=== PATIENT | female | born 2000 | race Caucasian/White ===

== ENCOUNTER 2022-05-28 12:53 | Outpatient (CLI) | payer OTHER, SELFPAY ==
[2022-05-28 20:45] LABS: Albumin* 4.7 g/dL (3.3-5.0); Chloride* 103 mmol/L (96-114); Potassium* 4.2 mmol/L (3.6-5.1); Sodium* 138 mmol/L (135-149)
[2022-05-28 20:49] LABS: Alanine Aminotransferase* 19 U/L (4-35); Alkaline Phosphatase* 67 U/L (40-150); Aspartate Amino Transferase* 28 U/L (12-35); Bilirubin Direct* 0.3 mg/dL (0.0-0.5); Bilirubin Total* 0.7 mg/dL (0.1-1.5); Blood Urea Nitrogen* 5 mg/dL (5-24); Calcium* 9.4 mg/dL (8.4-10.6); Carbon Dioxide* 30 mmol/L (20-32); Creatinine* 0.8 mg/dL (0.5-1.5); Estimated Glomerular Filt Rate 106.77; Glucose* 84 mg/dL (60-115); Lipase* 70 U/L (23-300)
== END 2022-05-28 12:54 | disposition home or self-care (01) ==
PROVIDERS: Visit Provider Family Medicine
DX: R53.83 Other fatigue (principal); R19.7 Diarrhea, unspecified; R10.9 Unspecified abdominal pain; M54.9 Dorsalgia, unspecified; R68.81 Early satiety
CPT/HCPCS: 80048; 80076; 83690

== ENCOUNTER 2022-05-28 21:46 | Emergency (ER) | payer OTHER, SELFPAY ==
[2022-05-28 21:52] VITALS: BP 107/78; PULSE 45; RESP 16; TEMP 36.2; O2SAT 100; BMI 22.9
--- NOTE | 2022-05-28 22:10 | CRLHL7_ITS ---
For Patients: As a result of the Century Cures Act, medical imaging exams and procedure reports are released immediately into your electronic medical record. You may view this report before your referring provider. If you have questions, please contact your health care provider. INDICATION: Back pain starts right and radiates, Chest Pain TECHNIQUE: CT chest with i.v. contrast using pulmonary angiographic technique. Coronal and sagittal reformats were obtained. CONTRAST: 95 mL Isovue 370 COMPARISON: None FINDINGS: Cardiovascular: The pulmonary arteries are unremarkable in enhancement with no evidence of acute pulmonary embolism. The heart has an unremarkable appearance and size. No sign of aneurysm in the thoracic aorta. Mediastinum: No mass or adenopathy seen. Lung: Both lungs are unremarkable in appearance. Pleura and pericardium: No sign of pleural effusion seen. No significant pericardial effusion is present. Chest wall and axilla: No mass or adenopathy seen. Bone: Mild chronic appearing compression deformities are seen on the superior endplates of T12-L2. Upper abdomen: Unremarkable. IMPRESSION: 1. No CT evidence of acute pulmonary emboli seen. Dictated by Saw Haywood MD @ 05/29/2022 12:36:43 AM Please note that all CT scans at this facility use dose modulation, iterative reconstruction, and/or weight-based dosing when appropriate to reduce radiation dose to as low as reasonably achievable. Dictated by: Saw Haywood MD @ 05/29/2022 00:37:10 (Electronically Signed)
--- NOTE | 2022-05-28 22:10 | CRLHL7_ITS ---
For Patients: As a result of the Century Cures Act, medical imaging exams and procedure reports are released immediately into your electronic medical record. You may view this report before your referring provider. If you have questions, please contact your health care provider. INDICATION: Right upper quadrant abdomen pain. TECHNIQUE: Ultrasound abdomen limited. Sonographic images of the right upper quadrant were obtained using russell-scale and color Doppler images. COMPARISON: None. FINDINGS: Liver: Normal in size and echotexture. No suspicious masses. No intrahepatic biliary dilation. Gallbladder: Contracted due to recent meal. No obvious gallstones. Normal wall thickness. No pericholecystic fluid. Common bile duct: 4 mm. Pancreas: Unremarkable. Right kidney: Normal in size. Normal echotexture and cortex. No suspicious masses, stones, or hydronephrosis. Vasculature: Proximal abdominal aorta and IVC are unremarkable. IMPRESSION: Contracted gallbladder, otherwise normal ultrasound. Dictated by Eldon Torres MD @ 05/28/2022 11:48:34 PM (Electronically Signed)
[2022-05-28 22:33] VITALS: BP 91/62; PULSE 40; RESP 16; O2SAT 98
[2022-05-28 23:00] VITALS: BP 92/63; PULSE 42; RESP 16; O2SAT 99
[2022-05-28 23:30] VITALS: BP 91/63; PULSE 40; RESP 16; O2SAT 100
--- NOTE | 2022-05-29 00:50 | ED.GENADULT ---
HPI - General Adult General Chief complaint: Back Injury/Pain Stated complaint: Back pain w/ pale stool Time Seen by Provider: 05/28/22 22:11 History of Present Illness HPI narrative: Patient is a 21-year-old woman who comes in today with posterior thoracic pain which is been escalating for last several weeks. Patient was seen in urgent care clinic today and had normal CBC CMP and UA. 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 Patient has had no cough no shortness of breath no fevers no chills. Pain is mom moderate to severe at times. Pain seems worsen with eating. Related Data Home Medications Medication Instructions Recorded Confirmed adapalene 0.3 % topical gel g TOPICAL 05/28/22 05/28/22 cefuroxime axetil 250 mg tablet 250 mg PO tab 05/28/22 05/28/22 medroxyprogesterone 10 mg tablet 10 mg PO tab 05/28/22 05/28/22 Allergies Allergy/AdvReac Type Severity Reaction Status Date / Time No Known Drug Allergies Allergy Verified 05/28/22 12:22 Review of Systems Status of ROS: Reports: 10 or more systems reviewed and unremarkable except as noted in History and below [facility] Social History Smoking Status: Never smoker Do you use any of these nicotine containing products: None How often do you have a drink containing alcohol: never AUDIT-C Alcohol total score: 0 Non-prescribed substance use: denies use service: No Exam Narrative: Exam Narrative: EXAM GENERAL: Patient appears comfortable and well. THYROID: no thyroid nodules or thyromegaly. LYMPH: No supraclavicular or cervical lymphadenopathy. SKIN: Visible skin seen during exam normal or with benign process only. EXT: No dependent lower extremity pedal edema. HEART: Regular rate and rhythm with no murmurs, rubs, or gallops. LUNGS: Clear to auscultation bilaterally with no crackles or wheezes. ABD: Soft, non tender, non distended. PSYCH: Good eye contact, speech is not pressured. Const: Vital Signs, click to edit/add: Vital Signs - 24 hr 05/28/22 21:52 05/28/22 22:33 Temperature 97.1 F L Pulse Rate [Left P ulse Oximeter] 45 L 40 L Respiratory Rate 16 16 Blood Pressure [Le ft Upper Arm] 107/78 91/62 Pulse Oximetry 100 98 Course Vital Signs Vital signs: Initial Vital Signs Temperature 97.1 F L 05/28/22 21:52 Temperature Source Temporal Artery Scan 05/28/22 21:52 Pulse Rate 45 L 05/28/22 21:52 Respiratory Rate 16 05/28/22 21:52 Blood Pressure 107/78 05/28/22 21:52 Blood Pressure Mean 87 05/28/22 21:52 Blood Pressure Position Sitting 05/28/22 21:52 Pulse Oximetry 100 05/28/22 21:52 Oxygen Delivery Method 05/28/22 21:52 Vital Signs Temperature 97.1 F L 05/28/22 21:52 Pulse Rate 45 L 05/28/22 21:52 Respiratory Rate 16 05/28/22 21:52 Blood Pressure 107/78 05/28/22 21:52 Pulse Oximetry 100 05/28/22 21:52 Temperature 97.1 F L 05/28/22 21:52 Pulse Rate 40 L 05/28/22 22:33 Respiratory Rate 16 05/28/22 22:33 Blood Pressure 91/62 05/28/22 22:33 Pulse Oximetry 98 05/28/22 22:33 Discharge Plan Discharge Clinical Impression: Back pain, thoracic Patient Disposition: Home, Self-Care Condition: Stable Instructions: Back Pain (ED) Additional Instructions: Monitor color and character of stool for the next 3 days Ice Tyelnol Motrin Follow up next week to discuss HIDA Scan vs Physical Therapy with MRI of the Thoracic Spine Activity Level: Activity as Tolerated Discharge Diet: Regular Prescriptions: No Action medroxyprogesterone 10 mg tablet 10 mg PO 0RF adapalene 0.3 % gel topical 0RF Label Comments: APPLY TOPICALLY AT BEDTIME TO ACNE OF FACE cefuroxime axetil 250 mg tablet 250 mg PO 0RF Follow Up/Referrals: Amrita Cameron PA-C [Primary Care Provider] - Stand Alone Forms: MyHealth Info Instructions
== END 2022-05-29 01:16 | disposition home or self-care (01) ==
PROVIDERS: Emergency Provider Internal Medicine; PCP Physician Assistant
DX: M54.6 Pain in thoracic spine (principal)
CPT/HCPCS: 71260; 76705; 99284; Q9967

== ENCOUNTER 2023-01-10 08:57 | Outpatient (CLI) | payer OTHER, SELFPAY ==
[2023-01-10 15:34] LABS: TSH With Reflex to FT4* 0.493 uIU/mL (0.270-4.200)
== END 2023-01-10 08:58 | disposition home or self-care (01) ==
LOC: LKVREF 08:58
PROVIDERS: PCP Physician Assistant; Visit Provider Physician Assistant
DX: N91.5 Oligomenorrhea, unspecified (principal)
CPT/HCPCS: 84443

== ENCOUNTER 2025-11-26 19:39 | Emergency (ER) | payer OTHER, SELFPAY ==
[2025-11-26 19:41] VITALS: BP 107/71; PULSE 81; RESP 16; TEMP 36.7; O2SAT 95; BMI 24.9
--- OUTSIDE RECORDS SUMMARY | 2025-11-26 19:41 | XMS_ITS | CCD ---
Author Name Interface, [id number] lity Address [address] [place] [address] [facility] Address [address] [place] [address] Reason for Visit Social History Date Name Value 07/27/2025 Sex Unknown
--- OUTSIDE RECORDS SUMMARY | 2025-11-26 19:41 | XMS_ITS | Clinical Summary ---
Author Organization Counts include 234 beds at the [facility] Address [address] [place] [address] Care Team Providers Care Security Researcher Name Role Phone Kathleen Grossman PA-C Primary Care Provider [phone] Source Comments You are receiving this document as you are listed as the primary care provider,follow-up provider, or the patient has been referred to you for consultation.This is in compliance with the Medicare andMag[facility] Hospitalcaid EHR Incentive Program,which states Providers who transition their patient to another setting of careor provider of care or refers their patient to another provider of care shouldprovide summary care record for each transition of care or referral. Counts include 234 beds at the [facility] Allergies Active AllergyReactionsCriticalityNoted DateCommentsGluten MealOther, see /03/2024 Inflammation and gastrointestinal symptoms Lactose Intolerance (Gi)Bvrtpesmavqacbwy42/03/2024 Medications MedicationSigDispense QuantityRefillsLast FilledStart DateEnd DateStatus fluconazole (DIFLUCAN) 150 MG tablet Indications:History of candidal vulvovaginitisOK to take one tab at start of yeast infection. OK to repeat dose if yeast not resolved after 3 days. 2 Tablet 11/01/2024ctive Active Problems ProblemNoted DateDiagnosed DateAttention deficit hyperactivity disorder (ADHD), predominantly inattentive type11/01/2024GAD (generalized anxiety disorder) 11/01/2024Gastroesophageal reflux disease with esophagitis without hemorrhage 08/26/2023Irritable bowel xvilbteb02/29/2023Low grade squamous intraepithelial lesion (LGSIL) at risk for high grade squamous intraepithelial lesion (HGSIL) on cytologic smear of batqiy6701/05/2021 Overview (10/30/2024): 01/05/2021 LSIL, cannot exclude HSIL 01/2021 [place], AIDE 1 01/2022 NIL 07/2023 NIL Plan: pap/hpv due 07/2026 Resolved Problems ProblemNoted DateDiagnosed DateResolved DateIUD (intrauterine device) in place Overview (10/30/2024): 05/01/2018: Mirena IUD inserted. Ioowhqbgfswfp08Other acneiarrhea Overview (10/30/2024): Bloating, diarrhea, dyspepsia. Evaluation [facility], Dr. Astorga, 06/29/13. U/s Blood work. Considering colonoscopy and breath H tests. Immunizations ImmunizationAdministration DatesNext Sey0yNTP (Gardasil)08/10/2013DTaP06/17/2004 ,02/23/2001,05/24/2000,03/22/2000,02/20/2000,01/22/2000Flu Vac (3+ yrs) 08/10/2013,09/18/2008,12/29/2006,10/05/2005Flu Vac Preserv Free (3+yrs) 10/01/2009Fluzone Qiv Multidose Vial 0.25 (6-35 Mos)09/09/2017HPV, Unspecified Xywbgwjnrha76/17/2016HepA Ped/Adol (1-18 yrs)08/10/2013,07/09/2011HepB Ped/Adol (0-18 yrs)02/23/2001,03/22/2000,01/22/2000Hib (PedvaxHIB)02/23/2001,03/22/2000, 01/22/2000Hib/HBV02/23/2001,03/22/2000,01/22/2000IPV (Polio)05/24/2000Influenza (Flucelvax)10/01/2009Influenza IIV4 (Quadrivalent) 0.5mL (82459)09/04/2020, 09/08/2018,11/01/2016,10/13/2015Influenza LAIV3 2-49 years (Flumist)10/20/2010 MCV4 (Menactra)07/14/2016MCV4 Menveo 2m.+ (two vial)07/09/2011MMR06/17/2004, 02/23/2001,11/17/2000Moderna Monovalent 12+01/01/2022,2Pneumococcal 7, PED11/17/2000,08/16/2000Polio, Unspecified Xgbnjibzlid54/21/2004,03/22/2000, 01/22/2000Tdap08/26/2023,07/09/20112292Zjfaqmwtb41/30/2007,11/17/2000 Family History Medical HistoryRelationNameCommentsCancer, ProstateBirth FatherNo Known Problems MotherCrohn's DiseaseMaternal GrandmotherLiver DiseaseMaternal Grandmother Ulcerative ColitisMaternal GrandmotherDiabetesPaternal GrandfatherRelationName StatusCommentsBirth FatherBirth MotherMaternal GrandmotherPaternal Grandfather Social History Tobacco UseTypesPacks/DayYears UsedDateSmoking Tobacco: NeverSmokeless Tobacco: Never Tobacco Cessation:Counseling Given: Not Answered Alcohol UseStandard Drinks/WeekCommentsYes2 (1 standard drink = 0.6 oz pure alcohol)PHQ-2AnswerDate RecordedPHQ-2 Giigw030Hunger Vital SignAnswer Date RecordedWithin the past 12 months, you worried that your food would run out before you got the money to buymore.Never true10/30/2024Within the past 12 months, the food you bought just didn't last and you didn't have money to get more.Never true10/30/2024RAPARE - TransportationAnswerDate RecordedIn the past 12 months, has lack of transportation kept you from medical appointments or from getting medications?No10/30/2024In the past 12 months, has lack of transportation kept you from meetings, work, or from getting things needed for daily living?No10/30/2024Housing Stability Vital SignAnswerDate RecordedIn the last 12 months, was there a time when you were not able to pay the mortgage or rent on time?No10/30/2024In the past 12 months, how many times have you moved where you were living?t any time in the past 12 months, were you homeless or living in a intermediate (including now)?No10/30/2024CommentsNo Sex and Gender InformationValueDate RecordedSex Assigned at BirthNot on file Legal BhcNstiof92/10/2012 6:56 AM CDTGender IdentityNot on fileSexual OrientationNot on file Last Filed Vital Signs Vital SignReadingTime TakenCommentsBlood Pioofphv579/6410/30/2024 8:20 AM MICROBIOLOGY TECHNOLOGIST Ksgcx035610/30/2024 8:20 AM BVXBysbaqqoykx30.6 ??C (97.8 ??F)10/30/2024 8:20 AM CSTRespiratory Zibc402212/31/2023 8:20 AM CSTOxygen Zvspjqpmya27%10/30/2024 8:20 AM CSTInhaled Oxygen Concentration--Oseqvq50.4 kg (164 lb)10/30/2024 8:20 AM MICROBIOLOGY TECHNOLOGIST Bpnzbs577.2 cm (5' 7)10/30/2024 8:20 AM CSTBody Mass Index25.6910/30/2024 8:20 AM MICROBIOLOGY TECHNOLOGIST Plan of Treatment Health MaintenanceDue DateLast DoneCommentsCOVID-19 Vaccine ( season) /02/2022, 12/04/2021Influenza Vaccine (#1)/06/2020, 09/08/2018, 09/09/2017, Additional history existsCervical Cancer Screening Due 07/29/2026dult Preventive Visit612/TaP/Tdap/Td Vaccine (8 - Tdap)/, 07/09/2011, 06/17/2004, Additional history exists Zoster/Shingles Vaccine (1 of 2)2049Pneumococcal VaccineAged Out 11/17/2000, 08/16/2000No longer eligible based on patient's age to complete this topicHepB JcjaawfMcnbcrvms92/29/2001, 02/23/2001, 03/22/2000, Additional history existsHib CdqovvbItsnnyoku94/29/2001, 02/23/2001, 03/22/2000, Additional history existsIPV (Polio) MxeafmtCbveuljes64/21/2004, 05/24/2000, 03/22/2000, Additional history existsVaricella VyeqxlyPkqggqhee05/30/2007, 11/17/2000HepA Vaccine Gfsyljpor34/13/2013, 07/09/2011HPV LtlnvouMjnripmjm49/17/2016, 08/10/2013MCV4 TkcrtjxYdunudjur94/17/2016, 07/09/20110236VmtdhicpaAyuzpxwvudgs58/03/2024, 08/06/2019HIV Screening (Preventive Services)Cnquhvnmj64/03/2024Hep C Screening (Preventive Services)Eupmlkjza79/03/2024Meningococcal B VaccineAged OutNo longer eligible based on patient's age to complete this topic Procedures Procedure NamePriorityDate/TimeAssociated DiagnosisCommentsHIV 1/2 AG/AB 4TH GEN Pbdfynb8910/30/2024 9:17 AM MICROBIOLOGY TECHNOLOGIST Routine screening for STI (sexually transmitted infection) Screening for HIV (human immunodeficiency virus) HEPATITIS C ANTIBODY, WITH REFLEX (ANTI-HCV)Bylaluw8210/30/2024 9:17 AM MICROBIOLOGY TECHNOLOGIST Routine screening for STI (sexually transmitted infection) Need for hepatitis C screening test CHLAMYDIA & GC (14 YEARS & OLDER)Sopycch5410/30/2024 9:06 AM MICROBIOLOGY TECHNOLOGIST Routine screening for STI (sexually transmitted infection) from Last 3 Months or Most Recently Relevant to Health Maintenance Results * HIV 1/2 Ag/Ab 4th Generation (10/30/2024 9:17 AM MICROBIOLOGY TECHNOLOGIST)ComponentValueRef Range Test MethodAnalysis TimePerformed AtPathologist SignatureHIV 1/2 Antigen/Antibody (4th generation)Negative (Non Reactive)Negative (Non Reactive)10/30/2024 3:18 PM CSTHEALTHPARTNERS CENTRAL LABComment:HIV-1 p24 Antigen and HIV-1/HIV-2 Antibody not detectedSpecimen (Source)Anatomical Location / LateralityCollection Method / VolumeCollection TimeReceived Time BloodVenipuncture / Dzakxfb7610/30/2024 9:17 AM CST10/30/2024 9:17 AM MICROBIOLOGY TECHNOLOGIST Narrative Authorizing ProviderResult TypeResult StatusKathleen RODRIGUEZCLAB_1Final ResultPerforming OrganizationAddressCity/State/ZIP CodePhone Number [facility] [address] * Hepatitis C Antibody, with Reflex (10/30/2024 9:17 AM MICROBIOLOGY TECHNOLOGIST)ComponentValueRef RangeTest MethodAnalysis TimePerformed AtPathologist SignatureHepatitis C AntibodyNegative (Non Reactive)Negative (Non Reactive)10/30/2024 3:12 PM MICROBIOLOGY TECHNOLOGIST [facility] LABComment:Antibodies to HCV not detected. Does not exclude the possiblity of exposure to HCV.Specimen (Source)Anatomical Location / LateralityCollection Method / VolumeCollection TimeReceived TimeBlood Venipuncture / Ihdylry2610/30/2024 9:17 AM CST10/30/2024 9:17 AM MICROBIOLOGY TECHNOLOGIST Narrative Authorizing ProviderResult TypeResult StatusKathleen DE SANTIAGO-CLAB_1Final ResultPerforming OrganizationAddressCity/State/ZIP CodePhone Number [facility] [address] [place] [address] * Chlamydia & GC (14 Years and Older): Vagina (10/30/2024 9:06 AM MICROBIOLOGY TECHNOLOGIST)Component ValueRef RangeTest MethodAnalysis TimePerformed AtPathologist Signature Chlamydia Trachomatis STDNot DetectedNot Fiouuczy44/03/2024 8:44 PM MICROBIOLOGY TECHNOLOGIST [facility]N. gonorrhoeae STDNot DetectedNot Jyqvjvrd36/03/2024 8:44 PM CSTCHRIST[facility] LABSpecimen (Source)Anatomical Location / LateralityCollection Method / VolumeCollection TimeReceived TimeSwab STD SPECIMEN FROM VAGINA / UnknownPatient Collected / Xwklyab6010/30/2024 9:06 AM CST10/30/2024 9:10 AM MICROBIOLOGY TECHNOLOGIST Narrative [facility] - 10/30/2024 8:44 PM MICROBIOLOGY TECHNOLOGIST Test performed by Donor Center Technician Mediated Amplification (TMA). Authorizing ProviderResult TypeResult StatusKathleen DE SANTIAGO-CLAB_1Final ResultPerforming OrganizationAddressCity/State/ZIP CodePhone Number [facility] [address] [place] [address], [facility] from Last 3 Months or Most Recently Relevant to Health Maintenance Insurance * Guarantor: Eagle Alexander TypeRelation to PatientDate of BirthPhone Billing AddressPersonal/Hfrzut1304/07/1978 [address] [place] [address] Care Teams Team MemberRelationshipSpecialtyStart DateEnd Date Kathleen Grossman, KATHY [address] [place] [address] PCP - GeneralPhysician Prexbpmsa12/21/24
--- OUTSIDE RECORDS SUMMARY | 2025-11-26 19:41 | XMS_ITS | Patient Health Record ---
Author Organization [facility] Address [facility] [address] [place] [address] Care Team Providers Care Chef Name Role Phone JANIE PUENTES Unavailable [phone] Lucy RYAN, Kylie Unavailable [phone] Reason For Referral No Information Social History Social History PSA Social HistorySocial InfoQuestionAnswerNotesSMOKING STATUS 13Y AND OLDERAre you a:Non-SmokerEducation:Is the Child in School?Yes? What Grade?7thAdditional DetailsCategorySocial InfoOptionsDetailsPSA Social HistoryChild Lives At:Home Child Lives With:Mother,OtherDay UocaXwTutsjist4Cltwcsa/Drugs?NoActivities / Interests?baseball, running, biking, video games, reading, youth group, outdoors Others Residing In Home:All Members: Mom, Step Dad, Brother, Sister, Step Sister EmploymentNoRecent Travelno Plan Of Treatment No Information Insurance Providers Payer Name Payer Address Payer Phone Subscriber Number Group Number Insured Name Patient Relationship to Insured Coverage Start Date Coverage End Date [employer] [address] [address] [place] [id number] Jorge Harley Child - Insured has Financial Responsibility 4
--- OUTSIDE RECORDS SUMMARY | 2025-11-26 19:41 | XMS_ITS | Clinical Summary ---
Author Organization [place] Address [address] [place] [address] Care Team Providers Care Underground Electrician Name Role Phone Jill Khan MD Unavailable Allergies No known active allergies Medications MedicationSigDispense QuantityRefillsLast FilledStart DateEnd DateStatus medroxyPROGESTERone (DEPO-PROVERA) 150 MG/ML injection Indications:Encounter for initial prescription of injectable contraceptiveInject 1 mL (150 mg) into the muscle every 3 months 1 mL Active Active Problems ProblemNoted DateDiagnosed DateIUD (intrauterine device) in place05/01/2018 Overview (05/01/2018): 05/01/2018: Mirena IUD inserted. Kbgcrfyvfoiyr09/09/2016Other acne07/30/2015 Resolved Problems ProblemNoted DateDiagnosed DateResolved DateEncounter for surveillance of injectable hkyqijdylbuoy11 Immunizations ImmunizationAdministration DatesNext DueComvax (HIB/HepB)02/23/2001,03/22/2000, 01/22/2000DTAP (<7y)06/17/2004,02/23/2001,05/24/2000,03/22/2000,01/22/2000H1n1- 09 Novel Flu10/01/2009HEPA08/10/2013,07/09/2011HPV07/14/2016,08/10/2013Influenza (IIV3) PF08/10/2013,09/18/2008,12/29/2006,10/05/2005Influenza (prior to 2023) 10/01/2009Influenza Intranasal Qgyknng1010/20/2010Influenza Vaccine >6 months,quad, PF09/08/2018,09/09/2017,11/01/2016,10/13/2015MMR (MMRII)06/17/2004, 11/17/2000Meningococcal (Menomune??)07/09/2011Meningococcal ACWY (Menactra??) 07/14/2016Pneumococcal (PCV 7)11/17/2000,08/16/2000Poliovirus, inactivated (IPV) 06/17/2004,05/24/2000,03/22/2000,01/22/2000TDAP (Adacel,Boostrix)07/09/2011 Varicella (Varivax)03/27/2007,11/17/2000 Family History Medical HistoryRelationCommentsFamily History NegativeFatherFamily History NegativeMotherRelationStatusCommentsFatherAliveMotherAlive Social History Tobacco UseTypesPacks/DayYears UsedDateSmoking Tobacco: NeverSmokeless Tobacco: NeverAlcohol UseStandard Drinks/WeekCommentsNo0 (1 standard drink = 0.6 oz pure alcohol)PHQ-2AnswerDate RecordedPHQ-2 Rbpca831Adolescent EducationAnswer Date RecordedGetting School Help NeededNot on file3CommentsNo Sex and Gender InformationValueDate RecordedSex Assigned at BirthNot on file Legal TxcEkawml36/04/2012 4:18 AM CSTGender IdentityNot on fileSexual OrientationNot on file Last Filed Vital Signs Vital SignReadingTime TakenCommentsBlood Eiihqrpt13/62008/06/2019 9:56 AM CDT Uostj5196/09/2019 9:56 AM HCVHrfxraqiumn14.9 ??C (98.5 ??F)08/06/2019 9:56 AM CDTRespiratory Lnty143208/06/2019 9:56 AM CDTOxygen Quvkaypnkc49%08/06/2019 9:56 AM CDTInhaled Oxygen Concentration--Cqemfq65 kg (145 lb 9.6 oz)08/06/2019 9:56 AM DNWAwkjbg118.2 cm (5' 7)08/06/2019 9:56 AM CDTBody Mass Index22.8008/06/2019 9:56 AM CDT Plan of Treatment Not on file Insurance * Guarantor: Vielka Harley TypeRelation to PatientDate of BirthPhone Billing AddressPersonal/NnihvgHqax1999 none (Work) [address] [place] [phone] Care Teams Team MemberRelationshipSpecialtyStart DateEnd Date Jill Khan MD ResidentPediatrics04/07/17
--- OUTSIDE RECORDS SUMMARY | 2025-11-26 19:41 | XMS_ITS | Clinical Summary ---
Author Organization [facility] Address [address] [place] [address] Care Team Providers Care Ticket Clerk Name Role Phone [facility] Primary Care Provider Unavailabl e Allergies No known active allergies Medications No known medications Active Problems ProblemNoted DateDiagnosed DateIrritable bowel mfouypfm90/29/2023ttention deficit hyperactivity disorder (ADHD), predominantly inattentive type08/26/2023 Gastroesophageal reflux disease with esophagitis without rietmqbull03/29/2023Low grade squamous intraepithelial lesion (LGSIL) at risk for high grade squamous intraepithelial lesion (HGSIL) on cytologic smear of ybneou9101/05/2021 Overview (09/05/2023): 01/05/2021 LSIL, cannot exclude HSIL 01/2021 [place], AIDE 1 01/2022 NIL 07/2023 NIL Plan: pap/hpv due 07/2026 Qpghzclq03/05/2013 Overview (07/02/2013): Bloating, diarrhea, dyspepsia. Evaluation Dr. Rizwan ALVAREZ, 06/29/13. U/s Blood work. Considering colonoscopy and breath H tests. Immunizations ImmunizationAdministration DatesNext DueCOVID-19 vaccine (Moderna 100mcg/0.5mL) PF, MDV01/01/2022,5365YPkD71/21/2004,02/23/2001,05/24/2000,03/22/2000, 02/20/2000,01/22/2000HIB PRP-OMP (PedvaxHIB)02/23/2001,03/22/2000,01/22/2000HIB- HepB (Comvax)02/23/2001,03/22/2000,01/22/2000HPV 9 (Gardasil 9)07/14/2016, 08/10/2013Hepatitis A (Peds)08/10/2013,07/09/2011Hepatitis A, Unspecified 08/10/2013,07/09/2011Hepatitis B (Peds)02/23/2001,03/22/2000,01/22/2000Human Papilloma Virus Hjdvyxl4608/10/2013Human Papilloma Virus Vaccine, Unspecified 07/14/2016Inactivated Polio Mdcebfd4606/17/2004,05/24/2000,03/22/2000,01/22/2000 Influenza A (H1N1), Inactivated (Age >=3 Years)10/01/2009Influenza Virus, Qjajeztbrck77/12/2018,09/09/2017,08/10/2013,10/20/2010,12/29/2006Influenza, IIV3 (Age 6-35 mos)10/01/2009Influenza, IIV3 (Age >=3 years)08/10/2013,10/01/2009, 09/18/2008,12/29/2006,10/05/2005Influenza, MCW670/06/2020,09/08/2018,11/01/2016, 10/13/2015Influenza, IIV4 (=>6mos) MDV1Influenza,LAIV4 Live Intranasal (Flumist)10/20/2010MMR06/17/2004,02/23/2001,11/17/2000Meningococcal Vaccine (Menactra)07/14/2016Meningococcal Vaccine (Menomune)07/09/2011Pneumococcal conj 7-Valent (Prevnar 7)11/17/2000,08/16/2000Polio Virus, Bsyqgspsdfv73/21/2004, 03/22/2000,01/22/2000Tdap08/26/2023,07/09/2011Varicella Glugsha9003/27/2007, 11/17/2000 Family History Medical HistoryRelationNameCommentsGood HealthFatherGood HealthMother Cancer-breastOtherdad's cousinAsthmaPaternal AuntDiabetesPaternal Grandfather DiabetesPaternal GrandmotherRelationNameStatusCommentsFatherMotherOtherPaternal AuntPaternal GrandfatherPaternal Grandmother Social History Tobacco UseTypesPacks/DayYears UsedDateSmoking Tobacco: NeverPassive Smoke Exposure: NeverSmokeless Tobacco: Never Tobacco Cessation:Counseling Given: Not Answered Comments:dad smokes outside Alcohol UseStandard Drinks/WeekCommentsNo0 (1 standard drink = 0.6 oz pure alcohol)PHQ-2AnswerDate RecordedPHQ-2 TOTAL [id number] Connections AnswerDate RecordedFrequency of Communication with Friends and Dnmpyn974 Financial Resource StrainAnswerDate RecordedDifficulty of Paying Living Expenses 3Difficulty of Paying Living ExpensesNot on file08/26/2023Food InsecurityAnswerDate RecordedWorried About Running Out of Food in the Last Year1 08/26/2023Transportation NeedsAnswerDate RecordedLack of Transportation (Medical)Housing StabilityAnswerDate RecordedUnable to Pay for Housing in the Last Hthh214regnantCommentsNoSex and Gender Information ValueDate RecordedSex Assigned at BirthNot on fileLegal GnrPmowmm26/14/2013 5:40 AM CSTGender IdentityNot on fileSexual OrientationNot on file Obstetrics History GravidaParaTermPretermABIABSABEctopicMultipleLivingLive [id number] Last Filed Vital Signs Vital SignReadingTime TakenCommentsBlood Cheyixjp950/72008/26/2023 2:12 PM CDT Oknpr324308/26/2023 2:12 PM RYLPfolwqxkxth13.7 ??C (98.1 ??F)10/04/2017 8:32 AM CSTRespiratory Rate--Oxygen Srykmltqkr94%08/26/2023 2:12 PM CDTInhaled Oxygen Concentration--Mzebph65.1 kg (163 lb 6.4 oz)08/26/2023 2:12 PM XAAUnkyuz636.2 cm (5' 7)08/26/2023 2:12 PM CDTBody Mass Index25.59008/26/2023 2:12 PM CDT Plan of Treatment Health MaintenanceDue DateLast DoneCommentsHIV for age 15-6511/11/2014Hepatitis C screening for age 18-7911/11/2017BMI (ht and wt on same day) for age 18+ , 01/05/2021epression screening for age 12+08/26/2024 08/26/2023, 01/05/2021OVID-19 vaccine series (2024- season)2025 01/01/2022, 12/04/2021Influenza Vaccine (#1)/06/2020, 09/08/2018, 09/08/2018, Additional history existsPap test for age 21-650, 01/29/2022, 01/05/2021Tetanus , 07/09/2011 Pneumococcal series for age 6-49Aged Out11/17/2000, 08/16/2000No longer eligible based on patient's age to complete this topicHepatitis B series for 19+Completed 02/23/2001, 02/23/2001, 03/22/2000, Additional history existsHPV series for age 9-45Fjsgbjalk27/17/2016, 07/14/2016, 08/10/2013, Additional history exists Procedures Procedure NamePriorityDate/TimeAssociated DiagnosisCommentsGYN THIN PREP PAP SCREEN IVJTAKSynqrzd39/29/2023 3:52 PM CDT Screening for malignant neoplasm of cervix from Last 3 Months or Most Recently Relevant to Health Maintenance Results * MANAGER CAMP THIN PREP PAP SCREEN IMAGED [[id number]] (08/26/2023 3:52 PM CDT)Component ValueRef RangeTest MethodAnalysis TimePerformed AtPathologist SignatureCase ReportGynecologic Cytology Report ? Case: [id number] ? Authorizing Provider: ??Jeny Landeros, DO ? Collected: ? 08/26/2023 1552 ? Ordering Location: ? [facility] ?? Received: ?08/26/2023 1552 ? Clinic ? First Screen: ?Honorio Hoover A ? Rescreen: ?Jenniferrmpaula, Aneta ? Specimen: ?MANAGER CAMP ThinPrep Vial Screening, Cervical ? 09/05/2023 10:04 [facility] INTERPRETATION/RESULTNEGATIVE FOR INTRAEPITHELIAL LESION OR MALIGNANCY (NIL) (none)09/05/2023 10:04 AM [facility] at 1004 CDTSPECIMEN [facility] Endocervical component kcbhdlg9509/05/2023 10:04 AM [facility] CENTRAL LABORATORYDate of LMP06/28/518788 10:04 AM [facility]Last Pap Date01/2902/2210 10:04 AM [facility]Last Pap DuktlmKOU28/09/2023 10:04 AM CDT [facility] LABORATORYAbnormal Pap or [place] Bx in last 5 oqfxuGwl45/09/2023 10:04 AM [facility] Menstrual StatusIrregular Llkhqrv4009/05/2023 10:04 AM [facility] LABORATORYColp Bx Done ZyedsKs1409/05/2023 10:04 AM [facility] LABORATORYAdditional InformationNone given09/05/2023 10:04 AM [facility] LABORATORYComment: Cytology is screened at [facility] - [address], [place] [address] and [facility] - [address] [place] [address] and [facility] - [address] [place] [address] Interpreted at [facility] - [address], [place] [address] Automated KufhdoBxezifjkdn08/09/2023 10:04 AM [facility] LABORATORYComment:Specimen processed successfully by automated regional hr manager device, ThinPrep Imaging System, [employer]NoteThe pap test is a screening technique, not a diagnostic procedure. It is used primarily to screen for squamous cancers and precursor lesions. Published studies have shown that it is subject to both false negative and false positive results. The pap test should not be used as the sole means to diagnose or exclude pre-malignant and malignant lesions.09/05/2023 10:04 AM [facility] Specimen (Source)Anatomical Location / LateralityCollection Method / Volume Collection TimeReceived TimeOther (Cervical)Non-Blood / Oivbzyw2108/26/2023 3:52 PM CDT08/26/2023 3:52 PM CDT Narrative Authorizing ProviderResult TypeResult StatusSherri Radha Landeros DO PATHOLOGY/CYTOLOGYFinal ResultPerforming OrganizationAddressCity/State/ZIP Code Phone Number [facility] [address] [place] [address], from Last 3 Months or Most Recently Relevant to Health Maintenance Insurance Care Teams Team MemberRelationshipSpecialtyStart DateEnd [facility] PCP - General01/25/18
--- NOTE | 2025-11-26 20:06 | ED.GENADULT ---
HPI - General Adult General Chief complaint: Abdominal Pain Stated complaint: Flu symptoms. Time Seen by Provider: 11/26/25 19:40 History of Present Illness HPI narrative: This 25-year-old female comes in reporting fever and sore throat for the past 8 days. She states that she had fevers for the 1st 5 days and at 1 point measured a fever of 105? F. She had sore throat and occasional cough. She has now developed some pain in her left abdomen. She arrives here now with normal vital signs. She did check viral testing at home and and this was negative for influenza a and B and negative also for COVID. Related Data Allergies Allergy/AdvReac Type Severity Reaction Status Date / Time Gluten Meal Allergy Mild Rash Uncoded 01/10/23 08:42 Review of Systems Status of ROS: Reports: 10 or more systems reviewed and unremarkable except as noted in History and below Narrative: Constitutional: No weight gain or loss. Eyes: No discharge. No vision changes. HENT: No congestion, no ear pain. She has a sore throat. Cardiovascular: No chest pain, no palpitations. Respiratory: No shortness of breath, no wheezes. She reports an occasional cough. Gastrointestinal: No vomiting, no diarrhea. Left-sided abdominal pain. Genitourinary: No dysuria, no hematuria. Musculoskeletal: Normal range of motion. Skin: No rashes, no pruritis. Neurological: No dizziness, weakness, sensory change, speech change. Endo/Heme/Allergies: No bruising or bleeding. No polydipsia. Pysch: no suicidality, no anxiety, no insomnia. All other systems reviewed and are negative. [facility] Medical History (Updated 11/26/25 @ 21:00 by Beau Lara MD) Rectal prolapse ?K62.3 - Rectal prolapse (ICD-10) History of gluten sensitivity No reaction to allergy testing (05/20/08) ?Z78.9 - Other specified health status (ICD-10) Surgical History (Updated 01/10/23 @ 08:14 by Amrita Cameron PA-C) History of inguinal hernia repair ?Z98.890 - Other specified postprocedural states (ICD-10) ?Z87.19 - Personal history of other diseases of the digestive system (ICD-10) History of tonsillectomy ?Z90.89 - Acquired absence of other organs (ICD-10) Social History (Updated 01/10/23 @ 08:54 by Amrita Cameron PA-C) 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 Nonsmoker. No alcohol use. Smoking Status: Never smoker Do you use any of these nicotine containing products: None How often do you have a drink containing alcohol: 2-4 times a month AUDIT-C Alcohol total score: 2 Non-prescribed substance use: denies use service: No Exam Narrative: Exam Narrative: Constitutional: Well-developed, well-nourished, no acute distress. HEENT: Normocephalic, atraumatic. Mild erythema in the oropharynx with no tonsillar hypertrophy or exudate. Neck: Normal range of motion. Nontender. Supple. Heart: Regular. No murmurs. Normal rate. Intact distal pulses. Lungs: Clear to auscultation. No chest discomfort. No wheezes, rhonchi, or rales. Abdomen: Normal bowel sounds. Mild tenderness in the left abdomen. No rebound tenderness. Genitalia: Deferred. Back: No midline tenderness. Normal range of motion. Extremities: Normal range of motion. No injury. Skin: Intact. No rash. Warm. No erythema or pallor. Neurologic: No altered sensation. No weakness. Alert and oriented. Psychiatric: No suicidality. No anxiety or depression. No insomnia. Nursing notes and vitals signs are reviewed. Const: Vital Signs, click to edit/add: Vital Signs - 24 hr 11/26/25 19:41 Temperature 98.1 F Pulse Rate [Pulse Oximeter] 81 Respiratory Rate 16 Blood Pressure [Ri ght Upper Arm] 107/71 Pulse Oximetry 95 Oxygen Delivery Me thod Room Air Course Vital Signs Vital signs: Initial Vital Signs Temperature 98.1 F 11/26/25 19:41 Temperature Source Temporal Artery Scan 11/26/25 19:41 Pulse Rate 81 11/26/25 19:41 Respiratory Rate 16 11/26/25 19:41 Blood Pressure 107/71 11/26/25 19:41 Blood Pressure Mean 83 11/26/25 19:41 Pulse Oximetry 95 11/26/25 19:41 Oxygen Delivery Method Room Air 11/26/25 19:41 Vital Signs Temperature 98.1 F 11/26/25 19:41 Pulse Rate 81 11/26/25 19:41 Respiratory Rate 16 11/26/25 19:41 Blood Pressure 107/71 11/26/25 19:41 Pulse Oximetry 95 11/26/25 19:41 Oxygen Delivery Method Room Air 11/26/25 19:41 Temperature 98.1 F 11/26/25 19:41 Pulse Rate 81 11/26/25 19:41 Respiratory Rate 16 11/26/25 19:41 Blood Pressure 107/71 11/26/25 19:41 Pulse Oximetry 95 11/26/25 19:41 Oxygen Delivery Method Room Air 11/26/25 19:41 Medications Administered Medications: Generic Name Dose Route Start Last Admin Trade Name Freq PRN Reason Stop Dose Admin Sodium Chloride 1,000 mls @ 1,000 mls/hr 11/26/25 20:15 11/26/25 20:25 0.9 % Sodium Chloride 1000 Ml IV 11/26/25 21:14 1,000 mls/hr .Q1H ERIC Administration Discontinued Medications Generic Name Dose Route Start Last Admin Trade Name Freq PRN Reason Stop Dose Admin Ketorolac Tromethamine 15 mg 11/26/25 20:04 11/26/25 20:25 Ketorolac 30 Mg/Ml Inj IVP 11/26/25 20:05 15 mg ONCE ONE Administration Methylprednisolone Sodium Succinate 125 mg 11/26/25 20:04 11/26/25 20:25 Methylprednisolone Sod Succ 62.5 Mg/Ml (125) IVP 11/26/25 20:05 125 mg ONCE ONE Administration Medical Decision Making MDM Narrative Medical decision making narrative: This patient comes in with upper respiratory symptoms and now abdominal pain as described above. An IV was established where she received a L of normal saline along with Toradol and Zofran. Her complete blood count returns with normal findings. Nasal pharyngeal swab is negative for viruses tested. For mono spot test also returns negative. Moe pharyngeal swab returned negative for strep. This patient is okay to be discharged home. I did provide in [facility] prescription for Toradol. Lab Data Labs: Lab Results 11/26/25 11/26/25 Range/Units 19:51 20:19 WBC 6.38 (4.50-11.00) K/uL RBC 4.37 (4.00-5.20) m/uL Hgb 13.3 (12.0-16.0) gm/dL Hct 40.4 (33.0-51.0) % MCV 92 (80-100) fL MCH 30 (26-34) pg MCHC 33 (32-36) gm/dL RDW Coeff of Tanvi 11.8 (11.5-15.5) % Plt Count 263 (140-440) K/uL Neut % (Auto) 52.5 (42.0-72.0) % Lymph % (Auto) 40.0 (20-44) % [place] % (Auto) 6.1 (0.0-11.0) % Eos % (Auto) 0.6 (0.0-7.0) % Baso % (Auto) 0.5 (0.0-3.0) % Neut # (Auto) 3.30 (1.7-7.0) K/uL Lymph # (Auto) 2.60 (0.90-2.90) K/uL [place] # (Auto) 0.40 (0.00-0.90) K/UL Eos # (Auto) 0.00 (0.00-0.50) K/uL Baso # (Auto) 0.00 (0.00-0.30) K/uL SARS-CoV-2 (PCR) Negative SARS-CoV-2 (Negative) Monoscreen Negative (Negative) Influenza Type A (PCR) Negative PCR FLU A (Negative) Influenza Type B (PCR) Negative PCR FLU B (Negative) RSV (PCR) Negative PCR RSV (Negative) Discharge Plan Discharge Clinical Impression: Acute upper respiratory infection Patient Disposition: Home, Self-Care Condition: Stable Additional Instructions: Take medication as needed and directed. Activity as tolerated. Follow up with MD return if worsening. Follow Up/Referrals: Provider,Not a Local [Primary Care Provider, Family Practice] Stand Alone Forms: [employer] Info Instructions
[2025-11-26] MEDS: METHYLPREDNISOLONE SOD SUCC 62.5 MG/ML (125) 125 MG IVP (20:25)
[2025-11-26 20:29] LABS: Hematocrit* 40.4 % (33.0-51.0); Hemoglobin* 13.3 gm/dL (12.0-16.0); Mean Corpuscular HGB Conc 33 gm/dL (32-36); Mean Corpuscular Hemoglobin 30 pg (26-34); Mean Corpuscular Volume 92 fL (80-100); RDW Coefficient of Variation % 11.8 % (11.5-15.5); Red Blood Count* 4.37 m/uL (4.00-5.20); White Blood Count* 6.38 K/uL (4.50-11.00)
[2025-11-26 20:30] LABS: Lymphocytes Absolute Auto 2.60 K/uL (0.90-2.90); Slide Review Reflex No
[2025-11-26 20:37] LABS: Mono Screen* Negative (Negative)
[2025-11-26 20:37] LABS: PCR FLU A Negative PCR FLU A (Negative); PCR FLU B Negative PCR FLU B (Negative); PCR RSV Negative PCR RSV (Negative); SARS PCR* Negative SARS-CoV-2 (Negative)
--- OUTSIDE RECORDS SUMMARY | 2025-11-26 20:41 | XMS_ITS | CCD ---
Author Name Interface, [id number] lity Address [address] [place] [address] [facility] Address [address] [place] [address] Reason for Visit Social History Date Name Value 07/27/2025 Sex Unknown
--- OUTSIDE RECORDS SUMMARY | 2025-11-26 20:41 | XMS_ITS | CCD ---
Author Name Interface, [id number] lity Address [address] [place] [address] [facility] Address [address] [place] [address] Reason for Visit Social History Date Name Value 07/27/2025 Sex Unknown
[2025-11-26 21:37] LABS: Strep A DNA Probe* NOT DETECTED (Not Detectd)
== END 2025-11-26 21:58 | disposition home or self-care (01) ==
PROVIDERS: Emergency Provider Emergency Medicine Emergency Medical Services
DX: J06.9 Acute upper respiratory infection, unspecified (principal)
CPT/HCPCS: 36415; 85025; 86308; 87631; 87651; 96361; 96374; 96375; 99284; J1885; J2919; J7030